=== PATIENT | female | born 1950 | race Caucasian/White ===

== ENCOUNTER 2022-04-20 10:43 | Observation (INO) ==
[2022-04-20 10:50] VITALS: BMI 22.6
[2022-04-20] MEDS ORDERED: NS 500 ML IV 500 ML IV ONE ×2 (10:54→10:56)
--- NOTE | 2022-04-20 10:54 | DR.GENAD ---
HPI Time Seen Time Seen by Provider: 04/20/22 10:53 PCP Primary Care Physician: DR. CASILLAS Complaint/Symptoms Chief Complaint Doctors Comments: 71 yt/o female brought in by family for altered mental status. Going on for the past 4 days. 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 Has been having generalized weakness, decreased PO intake, confusion, decreased speech past 4 days. No report of fever, chills, nausea, vomiting, diarrhea, urinary issues. Has had some sinus congestion, frontal headache. Chief Complaint:: DAUGHTER STATES PT. STARTED ACTING DIFFERENTLY ON TUESDAY OR TUESDAY. SHE STATES HER MOTHER WAS CONFUSED, UNABLE TO RECOGNIZE FAMILY MEMBERS, SLEEPING A LOT. DAUGHTER STATES PT. HAS BEEN APASHIC. LAST STROKE WAS OVER 1 YEAR AGO. IN TRIAGE, PT. IS ALERT. PT. IS ABLE TO STATE HER NAME. Nurses notes reviewed Nurses Notes Review: Yes Source History Provided: Family Member Mode of Arrival Mode of Arrival: Ambulatory Timing Onset of Chief Complaint: 04/16/22 PMH PMH Past Medical History: Yes Past Surgical History: Yes Family History History of Family Medical Conditions: Yes Family Medical History: Diabetes Mellitus, Cancer, [place], Coronary Artery Disease and Hypertension Social History Does patient currently use any type of tobacco product: No Have you used tobacco products in the last 12 months: No Type of Tobacco Use: None Does any household member use tobacco: No Alcohol Use: None Do you use any recreational Drugs:: No Lives With: Spouse Lives Where: Home Infectious screening In the last 2 months have you had wt loss of >10#?: NO Have you had fever, night sweats or hemotysis?: No Have you traveled outside the country in the last 6 months?: No Isolation: Standard ROS Review of Systems Constitutional: Weakness and Loss of Appetite Eyes: No Symptoms Reported ENTM: Nose Congestion Respiratoy: No Symptoms Reported Cardiovascular: No Symptoms Reported Gastrointestinal/Abdominal: No Symptoms Reported Genitourinary: No Symptoms Reported Neurological: Headache and Weakness Musculoskeletal: No Symptoms Reported Integumentary: No Symptoms Reported Hematologic/Lymphatic: No Symptoms Reported Psychiatric: No Symptoms Reported All Other Systems: Reviewed and Negative PE Vital Signs Vitals: Temperature 97.2 F Pulse Rate 66 Respiratory Rate 17 Blood Pressure 186/81 O2 Sat by Pulse Oximetry 94 General General Appearance: In No Apparent Distress and Other (+ a bit somnolent) Head Head Exam: Normal Inspection Eyes Eye exam: PERRL, EOMI and Other (slight dropping of left upper eyelid) ENT ENT Exam: Normal Exam and Mucous Membranes Moist Neck Neck Exam: Normal Inspection and Full ROM Chest Chest Inspection: Normal Inspection Respiratory Respiratory Exam: Normal Lung Sounds Bilat; negative Accessory Muscle Use or Respiratory Distress Cardiovascular Cardiovascular Exam: Regular Rate, Normal Rhythm and Normal Heart Sounds Abdominal Exam Abdominal Exam: Normal Bowel Sounds and Soft; negative Tenderness Extremities Extremities Exam: Normal Inspection and Full ROM; negative Edema Neurologic Neurological Exam: Alert, CN II-XII Intact, Motor Sensory Deficit and Other (follows commands); negative Oriented X3 Psychiatric Psychiatric Exam: Normal Affect Skin Skin Exam: Warm and Dry MDM Differential Diagnosis Differential Diagnosis: UTI, CVA, elecrtrolyte abnormalities, dehydration. COURSE Treatment Treatment: 71 y/o female brought in by family for altered mental status x several days. Pt is confused, able to follow commands. No focal neurological deficits. W/u initiated. 1400 - w/u shows UTI to be present. Pt given IV rocephin. CT of head with chronic changes. Has an area of uptake of the superior shahzad. Cannot r/o small hemorrhage vs calcification. Will order MRI of the brain. Pt accepted for admission for altered mental status, UTI by covering , Dr Guerrero. ROR Labs Reviewed Laboratory Results Reviewed?: Yes Result Diagrams: 04/20/22 11:12 04/20/22 11:12 Laboratory: WBC 8.0 X10^3/uL (3.6-10.0) 04/20/22 11:12 RBC 4.22 X10^6/uL (3.5-5.4) 04/20/22 11:12 Hgb 12.3 g/dL (12.0-16.0) 04/20/22 11:12 Hct 35.6 % (36.0-47.0) L 04/20/22 11:12 MCV 84.4 fL (80.0-100.0) 04/20/22 11:12 MCH 29.1 pg (27.0-34.0) 04/20/22 11:12 MCHC 34.5 g/dL (33.0-35.0) 04/20/22 11:12 RDW 16.6 % (11.6-16.5) H 04/20/22 11:12 Plt Count 282 X10^3/uL (150.0-450.0) 04/20/22 11:12 MPV 6.7 fL (7.4-11.0) L 04/20/22 11:12 Neut % (Auto) 68.7 % (42.0-75.0) 04/20/22 11:12 Lymph % (Auto) 20.4 % (21.0-51.0) L 04/20/22 11:12 [place] % (Auto) 9.2 % (0.0-13.0) 04/20/22 11:12 Eos % (Auto) 1.1 % (0.9-2.9) 04/20/22 11:12 Baso % (Auto) 0.6 % (0.2-1.0) 04/20/22 11:12 Neut # (Auto) 5.5 x10^3/uL (2.2-4.8) H 04/20/22 11:12 Lymph # (Auto) 1.6 X10^3/uL (1.3-2.9) 04/20/22 11:12 [place] # (Auto) 0.7 x10^3/uL (0.3-0.8) 04/20/22 11:12 Eos # (Auto) 0.1 x10^3/uL (0.0-0.2) 04/20/22 11:12 Baso # (Auto) 0.0 X10^3/uL (0.0-0.1) 04/20/22 11:12 Absolute Nucleated RBC 0.1 /100WBC 04/20/22 11:12 Sodium 144 mmol/L (136-145) 04/20/22 11:12 Corrected Sodium TNP 04/20/22 11:12 Potassium 3.1 mmol/L (3.5-5.1) L 04/20/22 11:12 Chloride 108 mmol/L (98-107) H 04/20/22 11:12 Carbon Dioxide 32.3 mmol/L (21-32) H 04/20/22 11:12 BUN 16 mg/dL (7-18) 04/20/22 11:12 Creatinine 1.03 mg/dL (0.55-1.02) H 04/20/22 11:12 Est GFR (MDRD) Af Amer > 60 (>60) 04/20/22 11:12 Est GFR (MDRD) Non-Af 56 (>60) L 04/20/22 11:12 Glucose 98 mg/dL (65-99) 04/20/22 11:12 Calcium 8.5 mg/dL (8.5-10.1) 04/20/22 11:12 Corrected Calcium TNP 04/20/22 11:12 Total Bilirubin 0.30 mg/dL (0.2-1.0) 04/20/22 11:12 AST 14 Units/L (15-37) L 04/20/22 11:12 ALT 13 Units/L (12-78) 04/20/22 11:12 Alkaline Phosphatase 126 Units/L (46-116) H 04/20/22 11:12 Creatine Kinase 113 Units/L (26-192) 04/20/22 11:12 Troponin I High Sens 5.4 ng/L (4.0-60.0) 04/20/22 11:12 Total Protein 6.6 g/dL (6.4-8.2) 04/20/22 11:12 Albumin 3.4 g/dL (3.4-5.0) 04/20/22 11:12 Globulin 3.2 g/dL (2.5-4.5) 04/20/22 11:12 Albumin/Globulin Ratio 1.1 Ratio (1.1-2.1) 04/20/22 11:12 Lipase 84 Units/L (73-393) 04/20/22 11:12 Specimen Type Catherized urine 04/20/22 12:45 Urine Color Yellow (YELLOW) 04/20/22 12:45 Urine Appearance Hazy (CLEAR) 04/20/22 12:45 Urine pH 5.0 (5.0 - 8.0) 04/20/22 12:45 Ur Specific [place] 1.025 (1.000-1.030) 04/20/22 12:45 Urine Protein 2+ (NEGATIVE) 04/20/22 12:45 Urine Glucose (UA) Negative (NEGATIVE) 04/20/22 12:45 Urine Ketones Negative (NEGATIVE) 04/20/22 12:45 Urine Blood 2+ (NEGATIVE) 04/20/22 12:45 Urine Nitrite Positive (NEGATIVE) 04/20/22 12:45 Urine Bilirubin Negative (NEGATIVE) 04/20/22 12:45 Urine Urobilinogen Normal (NORMAL) 04/20/22 12:45 Ur Leukocyte Esterase 2+ (NEGATIVE) 04/20/22 12:45 Urine RBC 5-10 /HPF (0-3) A 04/20/22 12:45 Urine WBC 30-50 /HPF (0-5) A 04/20/22 12:45 Ur Squamous Epith Cells Few /HPF (NEGATIVE) 04/20/22 12:45 Urine Bacteria 1+ /HPF (NEGATIVE) 04/20/22 12:45 Ur Culture Indicated? Yes/culture set up 04/20/22 12:45 SARS CoV-2 RNA Rapid QUITA Negative (NEGATIVE) 04/20/22 11:12 Blood work acceptable, U/a with 30-50 WBCs/hpf, c/w UTI. XRAY X-ray Results: CT head with chronic changes, possible small blood of shahzad. Will f/u with MRI. EKG Rate: 74 [place]: LAD (-23) Rhythm: NSR Block: None Hypertrophy: None ST: Nonsp Opioid Opioid Risk Tool Total: 0 Total Score Risk Category: Low Risk Copyright: Ralph CARLISLE predicting aberrant behaviors Discharge Plan Diagnosis Discharge Problem: Altered mental status, Urinary tract infection Discharge Plan Patient Disposition: HOME, SELF-CARE Condition: Stable
[2022-04-20 11:25] LABS: BASOPHILS % (AUTO) 0.6 % (0.2-1.0); EOSINOPHILS # (AUTO) 0.1 x10^3/uL (0.0-0.2); EOSINOPHILS % (AUTO) 1.1 % (0.9-2.9); HEMATOCRIT 35.6 % (36.0-47.0); HEMOGLOBIN 12.3 g/dL (12.0-16.0); LYMPHOCYTES # (AUTO) 1.6 X10^3/uL (1.3-2.9); LYMPHOCYTES % (AUTO) 20.4 % (21.0-51.0); MEAN CORPUSCULAR HEMOGLOBIN 29.1 pg (27.0-34.0); MEAN CORPUSCULAR HGB CONC 34.5 g/dL (33.0-35.0); MEAN CORPUSCULAR VOLUME 84.4 fL (80.0-100.0); MEAN PLATELET VOLUME 6.7 fL (7.4-11.0); MONOCYTES # (AUTO) 0.7 x10^3/uL (0.3-0.8); MONOCYTES % (AUTO) 9.2 % (0.0-13.0); NEUTROPHILS # (AUTO) 5.5 x10^3/uL (2.2-4.8); NEUTROPHILS % (AUTO) 68.7 % (42.0-75.0); RED BLOOD COUNT 4.22 X10^6/uL (3.5-5.4); RED CELL DISTRIBUTION WIDTH 16.6 % (11.6-16.5)
[2022-04-20 11:35] LABS: ALANINE AMINOTRANSFERASE 13 Units/L (12-78); ALBUMIN 3.4 g/dL (3.4-5.0); ALKALINE PHOSPHATASE 126 Units/L (46-116); ASPARTATE AMINO TRANSFERASE 14 Units/L (15-37); BLOOD UREA NITROGEN 16 mg/dL (7-18); CALCIUM 8.5 mg/dL (8.5-10.1); CARBON DIOXIDE 32.3 mmol/L (21-32); CHLORIDE 108 mmol/L (98-107); CREATINE KINASE 113 Units/L (26-192); CREATININE 1.03 mg/dL (0.55-1.02); LIPASE 84 Units/L (73-393); SODIUM 144 mmol/L (136-145); TOTAL PROTEIN 6.6 g/dL (6.4-8.2); eGFR NON BLACK RACES 56 (>60)
--- NOTE | 2022-04-20 12:58 | CT ---
HISTORYUnresponsive, altered mental statusSTUDYCT head without contrastTechnique: Axial noncontrast images with coronal and sagittal reformats. Dose reduction procedures were used with mA/kv adjusted for body size.COMPARISONNoneFINDINGSThe patient is status post right frontal craniotomy and bone flap. The ventricles, cortical sulci, and other CSF spaces are enlarged consistent generalized atrophy likely age related. There is decreased attenuation in the periventricular white matter suggestive of small vessel vascular disease. Old infarcts are present in the anterior left thalamus and left basal ganglia, right basal ganglia, and left centrum semiovale. There is a 5 mm focus of increased attenuation in the superior aspect of the mid pontine region which could represent calcification or hemorrhage. MRI is recommended in order to make this distinction. This is best visualized on CT series 4, image [address] series 5, image 17. There are no focal areas of abnormal attenuation to suggest recent CVA, contusion, or extra-axial fluid collection. The visualized sinuses are clear. The calvarium is intact other than the prior right frontal surgery.IMPRESSION5 mm focus of increased attenuation in the superior aspect of the mid pontine region representing either calcification or a very small acute hemorrhage. MRI is recommended in order to make this distinction.Generalized atrophy likely age relatedSmall-vessel diseaseMultiple old infarcts as described aboveElectronically signed by: SAVANNA FINLEY (Apr 20, 2022 12:56:57)
[2022-04-20 13:18] LABS: BILIRUBIN,URINE NEGATIVE (NEGATIVE); BLOOD/HEMOGLOBIN,URINE 2+ (NEGATIVE); GLUCOSE, URINE NEGATIVE (NEGATIVE); KETONES,URINE NEGATIVE (NEGATIVE); LEUKOCYTE ESTERASE ,URINE 2+ (NEGATIVE); NITRITES,URINE POSITIVE (NEGATIVE); PROTEIN,URINE 2+ (NEGATIVE); UROBILINOGEN,URINE NORMAL (NORMAL)
[2022-04-20 13:28] LABS: APPEARANCE,URINE HAZY (CLEAR); BACTERIA,URINE 1+ /HPF (NEGATIVE); COLOR,URINE YELLOW (YELLOW); SQUAMOUS EPITHELIAL CELL,UR FEW /HPF (NEGATIVE)
[2022-04-20] MEDS ORDERED: NS 100 ML IV 100 ML ONE (13:40)
[2022-04-20] MEDS ORDERED: ROCEPHIN VIAL 1 GRAM ONE (13:40)
[2022-04-20] MEDS: ROCEPHIN VIAL 1 GRAM 1 G in NS 100 ML IV 100 ML IV SCH (13:44)
--- NOTE | 2022-04-20 14:31 | RAD ---
HISTORYHAD ANOTHER STROKE BARELY RESPONSIVE.br STATUSSTUDYCHEST, 1 VIEWCOMPARISONNoneFINDINGSThe cardiomediastinal silhouette is normal in size. No acute airspace disease. No pneumothorax or effusion. The bony thorax appears intact.IMPRESSIONNo acute cardiopulmonary disease.Electronically signed by: SAVANNA FINLEY (Apr 20, 2022 14:28:57)
[2022-04-20] MEDS ORDERED: ZOFRAN TAB 4 MG PO PRN (14:43)
--- NOTE | 2022-04-20 15:21 | MRI ---
HISTORYABNORMAL CT, AMS.STUDYBRAIN W/O CONCOMPARISONCT head from same day.TECHNIQUEMultiplanar multi-sequence MRI of the brain was obtained utilizing standard departmental protocol. Sagittal and axial T1 weighted images were obtained. Axial T2 and flair weighted images were performed as well. Axial diffusion weighted and ADC trace mapping was performed.FINDINGSDiffusion imaging: [There is restricted diffusion at the anterior left caudate and posterior limb of the left internal capsule image 11 series 502. ]Susceptibility weighted imaging: [Punctate susceptibility artifact at the medulla and dorsal shahzad image 5 and 8 series 1001. No other abnormal signal in these locations on other pulse sequences. Prior right frontal craniotomy with susceptibility artifact from hardware.]Brain volume: [Appropriate for age.]Ventricles and basal cisterns: [Normal for age.]Extra-axial spaces: [No extra-axial collection.]Cerebral parynchema: [No mass, hematoma, or mass effect.] Chronic left basal ganglia, right internal capsule, pontine, and bilateral thalami lacunar infarcts. Moderate amount of T2 and Flair hyperintensities in the supratentorial subcortical and deep white matter. Mild encephalomalacia adjacent to the craniotomy defect in the right frontal lobe.Pituitary and other sagittal midline structures: [Normal.]Visualized orbits: [Normal.]Paranasal sinuses and mastoid air cells: [Mild mucosal thickening in the ethmoid air cells.]Bones: [Prior right frontal craniotomy.]Other: [None.]IMPRESSION[Restricted diffusion in the anterior left caudate and posterior limb of the left internal capsule consistent with acute or early subacute lacunar infarct.Susceptibility artifact in the medulla and dorsal shahzad is likely due to chronic mineralization or calcification rather than acute blood product.] No other abnormal signal in these locations on other pulse sequences.Other chronic ischemic change as above.Electronically signed by: Milo Rowell (Apr 20, 2022 15:20:07)
--- NOTE | 2022-04-20 15:55 | DR.H&P ---
H&P - History & Physical for Day of: H&P Date: 04/20/22 - Chief Complaint Chief Complaint: AMS - History of Present Illness History of Present Illness: DAUGHTER STATES PT. STARTED ACTING DIFFERENTLY ON TUESDAY OR TUESDAY. SHE STATES HER MOTHER WAS CONFUSED, UNABLE TO RECOGNIZE FAMILY MEMBERS, SLEEPING A LOT. DAUGHTER STATES PT. HAS BEEN APASHIC. LAST STROKE WAS OVER 1 YEAR AGO. IN TRIAGE, PT. IS ALERT. PT. IS ABLE TO STATE HER NAME. - Past Medical History Past Medical History: CVA, Dyslipidemia, GERD, Hypertension - Past Surgical History Surgical History: Hysterectomy - Family History Family Medical History: Diabetes Mellitus, Cancer, [place], Coronary Artery Disease, Hypertension - Social History Does patient currently use any type of tobacco product: No Have you used tobacco products in the last 12 months: No Type of Tobacco Use: None Does any household member use tobacco: No Alcohol Use: None Drug Use: None - Medications Home Medications: codeine Allergy (Verified 04/20/22 10:50) Sulfa (Sulfonamide Antibiotics) [SULFA] Allergy (Verified 04/20/22 10:50) CONTINUE taking the following medications amlodipine 5 mg tablet 5 mg PO DAILY 04/20/22 [History] atorvastatin 40 mg tablet 1 tab PO QPM 04/20/22 [History] clopidogrel 75 mg tablet 1 tab PO QDAY 04/20/22 [History] diltiazem HCl 180 mg capsule,extended release 24 hr 1 cap PO QDAY 04/20/22 [History] ergocalciferol (vitamin D2) 1,250 mcg (50,000 unit) capsule 1 cap PO QMONTH 04/20/22 [History] levetiracetam 250 mg tablet 1 tab PO BID 04/20/22 [History] losartan 50 mg tablet 50 mg PO DAILY 04/20/22 [History] mirabegron 25 mg tablet,extended release 24 hr (Myrbetriq) 1 tab PO QDAY 04/20/22 [History] omeprazole 40 mg capsule,delayed release 1 cap PO QDAY 04/20/22 [History] ondansetron HCl 4 mg tablet 1 tab PO Q6H PRN nausea/vomiting 04/20/22 [History] tolterodine 4 mg capsule,extended release 24 hr 4 mg PO DAILY 04/20/22 [History] - Review of Systems Constitutional: Weakness, Malaise Eyes: No Symptoms Reported ENT: No Symptoms Reported Respiratory: No Symptoms Reported Cardiovascular: No Symptoms Reported Gastrointestinal: Other (POOR PO INTAKE) Genitourinary: Incontinence Musculoskeletal: No Symptoms Reported Skin: No Symptoms Reported Neurological: Weakness, Other (APHAGIA) - Physical Exam Vital Signs: Temperature 97.2 F Pulse Rate 66 Respiratory Rate 17 Blood Pressure 186/81 O2 Sat by Pulse Oximetry 93 Oriented: Person Eyes: Normal Ear: Normal Nose: Normal Throat: Normal Respiratory: RLL Diminished, LLL Diminished Cardiovascular: Normal. negative: Edema Tenderness: Normal Skin: Decreased [place] Musculoskeletal: Motor Deficit Affect: Flat Speech Pattern: Delayed - Assessment/Plan (1) Altered mental status Status: Acute Plan: ADMIT, AM FLP. ECHO AND CAROTID US. BP CONTROL, CARDIAC MONITORING. MRI ON ADMISSION, CONTINUE PLAVIX STATIN ASPIRIN THERAPY. PT/OT/ST CONSULT (2) CVA (cerebral vascular accident) Status: Acute (3) Urinary tract infection Status: Acute - Allergies Allergies/Adverse Reactions: Allergies Allergy/AdvReac Type Severity Reaction Status Date / Time codeine Allergy Verified 04/20/22 10:50 Sulfa (Sulfonamide Allergy Verified 04/20/22 10:50 Antibiotics) [SULFA]
[2022-04-20] MEDS: CARDIZEM CD 180 MG 24-HR PO SCH (16:14)
[2022-04-20] MEDS: PriLOSEC PO SCH (16:14)
[2022-04-20] MEDS: ASPIRIN EC 81 MG PO SCH (16:15)
[2022-04-20] MEDS: PLAVIX PO SCH (16:16)
[2022-04-20] MEDS ORDERED: CATAPRES TAB 0.1 MG PO ONE (16:24)
[2022-04-20] MEDS ORDERED: POTASSIUM CHL 40 MEQ/NS 0.45% 500 ML IV PRN (19:19)
[2022-04-20] MEDS ORDERED: K-RIDER 10 MEQ/NS 100 ML 10 MEQ/100 ML BAG IV PRN (19:19)
[2022-04-20] MEDS ORDERED: POTASSIUM CHLORIDE LIQ 20 MEQ UDC PO PRN (19:19)
[2022-04-20] MEDS ORDERED: POTASSIUM CHL 60 MEQ/NS 0.45% 500 ML IV PRN (19:19)
[2022-04-20] MEDS: KEPPRA TAB 500 MG PO SCH (20:45)
[2022-04-20] MEDS: LIPITOR TAB 40 MG PO SCH (20:46)
[2022-04-20] MEDS: KLOR-CON PO PRN (20:47)
[2022-04-21 06:11] LABS: BASOPHILS # (AUTO) 0.1 X10^3/uL (0.0-0.1); BASOPHILS % (AUTO) 0.9 % (0.2-1.0); EOSINOPHILS # (AUTO) 0.1 x10^3/uL (0.0-0.2); EOSINOPHILS % (AUTO) 1.8 % (0.9-2.9); HEMATOCRIT 34.3 % (36.0-47.0); HEMOGLOBIN 11.9 g/dL (12.0-16.0); LYMPHOCYTES # (AUTO) 1.9 X10^3/uL (1.3-2.9); LYMPHOCYTES % (AUTO) 29.9 % (21.0-51.0); MEAN CORPUSCULAR HEMOGLOBIN 28.9 pg (27.0-34.0); MEAN CORPUSCULAR HGB CONC 34.7 g/dL (33.0-35.0); MEAN CORPUSCULAR VOLUME 83.2 fL (80.0-100.0); MONOCYTES # (AUTO) 0.6 x10^3/uL (0.3-0.8); MONOCYTES % (AUTO) 8.8 % (0.0-13.0); NEUTROPHILS # (AUTO) 3.8 x10^3/uL (2.2-4.8); NEUTROPHILS % (AUTO) 58.6 % (42.0-75.0); RED BLOOD COUNT 4.13 X10^6/uL (3.5-5.4); RED CELL DISTRIBUTION WIDTH 16.6 % (11.6-16.5); WHITE BLOOD COUNT 6.5 X10^3/uL (3.6-10.0)
[2022-04-21 06:18] LABS: ALANINE AMINOTRANSFERASE 11 Units/L (12-78); ALBUMIN 2.9 g/dL (3.4-5.0); ALKALINE PHOSPHATASE 114 Units/L (46-116); ASPARTATE AMINO TRANSFERASE 20 Units/L (15-37); BLOOD UREA NITROGEN 13 mg/dL (7-18); CALCIUM 8.5 mg/dL (8.5-10.1); CARBON DIOXIDE 27.9 mmol/L (21-32); CHLORIDE 107 mmol/L (98-107); CHOL/HDL RATIO 3.5 (0.0-5.0); CHOLESTEROL 180 mg/dL (0-200); COR CA(FOR HYPOALB) 9.4 mg/dL (8.5-10.1); CREATININE 0.72 mg/dL (0.55-1.02); HDL CHOLESTEROL 51 mg/dL (40-60); SODIUM 140 mmol/L (136-145); TOTAL PROTEIN 6.1 g/dL (6.4-8.2); TRIGLYCERIDES 93 mg/dL (0-150); eGFR NON BLACK RACES > 60 (>60)
[2022-04-21] MEDS ORDERED: DETROL LA 4 MG CAP EXT REL PO SCH (09:00)
[2022-04-21] MEDS: PriLOSEC PO SCH (09:52)
[2022-04-21] MEDS: ASPIRIN EC 81 MG PO SCH (09:52)
[2022-04-21] MEDS: PLAVIX PO SCH (09:53)
[2022-04-21] MEDS: KEPPRA TAB 500 MG PO SCH ×2 (09:53→20:31)
[2022-04-21] MEDS: ROCEPHIN VIAL 1 GRAM 1 G in NS 100 ML IV 100 ML IV SCH (09:54)
[2022-04-21] MEDS: CARDIZEM CD 180 MG 24-HR PO SCH (09:54)
[2022-04-21] MEDS: NORVASC TAB 5 MG PO SCH (09:58)
[2022-04-21] MEDS: COZAAR PO SCH (09:58)
--- NOTE | 2022-04-21 10:05 | VAS ---
HISTORYCVA, AMS.Concern for carotid artery stenosis. Carotid atherosclerosis.EXAM: BILATERAL DOPPLER CAROTID ULTRASOUND EXAMTechnique: Multiple robin scale and color flow Doppler images of the right and left carotid arterial system were obtained. The vertebral arterial system was evaluated as well.Findings: Nonocclusive color flow Doppler is seen throughout the right and left carotid arterial system. No hemodynamically significant carotid arterial stenosis is seen based on velocity criteria. There is [id number] bilateral carotid atherosclerosis and mixed atherosclerotic plaque formation of the bilateral carotid bulbs and ICAs with associated intimal thickening but [without] evidence for high-grade stenosis (>70%) or occlusion of the carotid arteries. The left vertebral artery demonstrate antegrade flow.IMPRESSION:Znio-[id number] bilateral carotid atherosclerosis and mixed atherosclerotic plaque formation of the bilateral carotid bulbs and [in both] ICAs with [id number] associated carotid intimal thickening but without evidence for high-grade stenosis or occlusion of the carotid arteries, based on Doppler velocity criteria.Appropriate, antegrade, left vertebral arterial flow. The right vertebral artery is not evaluated/visualized on this exam.Peak right ICA velocity: 109 centimeter/seconds.Peak right CCA velocity: 94 centimeter/seconds.Peak left ICA velocity: 54 centimeter/seconds.Peak left CCA velocity: 96 centimeter/seconds.Right ICA to CCA ratio: 3.36.Left ICA to CCA ratio: 0.90.Electronically signed by: IRENE ANGEL III (Apr 21, 2022 10:03:47)
[2022-04-21] MEDS ORDERED: NS 100 ML IV 100 ML ONE (10:13)
[2022-04-21] MEDS: LIPITOR TAB 40 MG PO SCH (20:32)
[2022-04-22 06:38] LABS: ALANINE AMINOTRANSFERASE 12 Units/L (12-78); ALBUMIN 3.2 g/dL (3.4-5.0); ALKALINE PHOSPHATASE 128 Units/L (46-116); ASPARTATE AMINO TRANSFERASE 14 Units/L (15-37); BLOOD UREA NITROGEN 12 mg/dL (7-18); CALCIUM 8.4 mg/dL (8.5-10.1); CARBON DIOXIDE 30.2 mmol/L (21-32); CHLORIDE 104 mmol/L (98-107); CREATININE 0.71 mg/dL (0.55-1.02); SODIUM 141 mmol/L (136-145); TOTAL PROTEIN 6.5 g/dL (6.4-8.2); eGFR NON BLACK RACES > 60 (>60)
[2022-04-22 07:16] LABS: BASOPHILS # (AUTO) 0.1 X10^3/uL (0.0-0.1); BASOPHILS % (AUTO) 0.8 % (0.2-1.0); EOSINOPHILS # (AUTO) 0.1 x10^3/uL (0.0-0.2); EOSINOPHILS % (AUTO) 2.2 % (0.9-2.9); HEMATOCRIT 33.8 % (36.0-47.0); HEMOGLOBIN 12.1 g/dL (12.0-16.0); MEAN CORPUSCULAR HEMOGLOBIN 29.1 pg (27.0-34.0); MEAN CORPUSCULAR HGB CONC 35.6 g/dL (33.0-35.0); MEAN CORPUSCULAR VOLUME 81.7 fL (80.0-100.0); MEAN PLATELET VOLUME 6.7 fL (7.4-11.0); MONOCYTES # (AUTO) 0.6 x10^3/uL (0.3-0.8); MONOCYTES % (AUTO) 8.5 % (0.0-13.0); NEUTROPHILS % (AUTO) 59.5 % (42.0-75.0); RED BLOOD COUNT 4.14 X10^6/uL (3.5-5.4); RED CELL DISTRIBUTION WIDTH 16.3 % (11.6-16.5); WHITE BLOOD COUNT 6.7 X10^3/uL (3.6-10.0)
[2022-04-22] MEDS: ASPIRIN EC 81 MG PO SCH (10:00)
[2022-04-22] MEDS: CARDIZEM CD 180 MG 24-HR PO SCH (10:00)
[2022-04-22] MEDS: KEPPRA TAB 500 MG PO SCH (10:00)
[2022-04-22] MEDS: NORVASC TAB 5 MG PO SCH (10:00)
[2022-04-22] MEDS: COZAAR PO SCH (10:00)
[2022-04-22] MEDS: PriLOSEC PO SCH (10:00)
[2022-04-22] MEDS: PLAVIX PO SCH (10:00)
[2022-04-22] MEDS: ROCEPHIN VIAL 1 GRAM 1 G in NS 100 ML IV 100 ML IV SCH (10:38)
[2022-04-22] MEDS: KLOR-CON PO PRN (11:23)
[2022-04-22 12:27] VITALS: BP 148/68
[2022-04-22] MEDS ORDERED: CIPRO TAB 500 MG PO SCH (14:00)
[2022-05-20] MEDS ORDERED: VITAMIN D (1.25MG) PO SCH (09:00)
== END 2022-04-22 14:00 | disposition home health service (06) ==
LOC: MED/SURG 10:43 → ER 10:43 → MED/SURG 15:05
PROVIDERS: ADMIT Internal Medicine; ATTEND Internal Medicine
DX: I10 Essential (primary) hypertension; K21.9 Gastro-esophageal reflux disease without esophagitis; I69.354 Hemiplegia and hemiparesis following cerebral infarction affecting left non-dominant side; E78.2 Mixed hyperlipidemia; B95.7 Other staphylococcus as the cause of diseases classified elsewhere; R94.31 Abnormal electrocardiogram [ECG] [EKG]; N39.0 Urinary tract infection, site not specified; R26.89 Other abnormalities of gait and mobility; Z20.822 Contact with and (suspected) exposure to COVID-19; R13.11 Dysphagia, oral phase; R51.9 Headache, unspecified; R41.82 Altered mental status, unspecified

== ENCOUNTER 2022-05-06 12:58 | Inpatient (IN) ==
[2022-05-06 13:03] VITALS: BMI 23.3
--- NOTE | 2022-05-06 13:19 | DR.GENAD ---
HPI Time Seen Time Seen by Provider: 05/06/22 13:18 PCP Primary Care Physician: HAILEY CASILLAS Complaint/Symptoms Chief Complaint Doctors Comments: 71 y/o female brought in for evaluation. Having genearalized weakness over the past 2 days. Not eating, not drinking. Getting weaker. Had a UTI, mild CVA few weeks ago. Was doing better up to 2 days ago. No focal weakness, has not had much to eat, drink. No change in urine. Coughed once yesterday. [place] warm, + temp here. Pt unable to voice complaints, has difficulty in following commands. Chief Complaint:: FAMILY STATES THEY THINK PT. HAS HAD ANOTHER STROKE. PT. BEGAN BEING VERY TIRED AND SLEEPING A LOT ON TUESDAY. PT. HAS NOT BEEN EATING/DRINKING MUCH AND IS VERY WEAK GENERALLY. DAUGHTER STATES PT. HAS NOW HAD A BOWEL MOVEMENT X 1 WEEK. SHE STATES SHE HAS GIVEN HER MEDICATION OTC WITH NO RESULTS. COVID-19 Coronavirus risk:travel/contact w/high risk person: No Has patient experienced Coronavirus symptoms: No Source History Provided: Family Member Mode of Arrival Mode of Arrival: Wheelchair Timing Onset of Chief Complaint: 05/04/22 PMH PMH Past Medical History: Yes Past Medical History: CVA, Dyslipidemia, GERD and Hypertension Past Surgical History: Yes Surgical History: Hysterectomy Family History History of Family Medical Conditions: Yes Family Medical History: Diabetes Mellitus, Cancer, [place], Coronary Artery Disease and Hypertension Social History Does patient currently use any type of tobacco product: No Have you used tobacco products in the last 12 months: No Type of Tobacco Use: None Does any household member use tobacco: No Alcohol Use: None Do you use any recreational Drugs:: No Lives With: Spouse Lives Where: Home Travel Risk Coronavirus risk:travel/contact w/high risk person: No Has patient experienced Coronavirus symptoms: No Infectious screening In the last 2 months have you had wt loss of >10#?: NO Have you had fever, night sweats or hemotysis?: No Have you traveled outside the country in the last 6 months?: No Isolation: Standard ROS Review of Systems Unable to Obtain Due To: Altered mental status PE Vital Signs Vitals: Temperature 98.4 F Pulse Rate 92 Respiratory Rate 20 Blood Pressure [Right Arm] 148/68 Blood Pressure 141/77 O2 Sat by Pulse Oximetry 96 General General Appearance: Obtunded Head Head Exam: Normal Inspection, Atraumatic and Normocephalic Eyes Eye exam: PERRL ENT ENT Exam: Mucous Membranes Dry Neck Neck Exam: Normal Inspection Respiratory Respiratory Exam: Normal Lung Sounds Bilat; negative Accessory Muscle Use or Respiratory Distress Cardiovascular Cardiovascular Exam: Regular Rate, Normal Rhythm and Normal Heart Sounds Abdominal Exam Abdominal Exam: Normal Inspection, Normal Bowel Sounds and Soft; negative Tenderness, Guarding or Rebound Extremities Extremities Exam: negative Edema Neurologic Neurological Exam: Other (diffuse weakness, opens eyes to commands, non verbal) MDM Differential Diagnosis Differential Diagnosis: dehydration, electrolytre abn, UTI, CVA, pneumonia COURSE Treatment Treatment: Pt with worsening weakness over the past 2 days. + fever here. W/u initiated. Given IV fluids. 1445 - Brain CT wihtout acute abnormalities. Labs show sodium elevated at 156, chloride 116. Total CK elevated at 2,021. U/A cloudy, concentrated. Moderate hyaline casts, moderate mucous. Will give a dose of Rocephin to cover the urine. Will admit for hydration. Disucssed with Dr Hallman, covering for hospitalist, accepts the admission. ROR Labs Reviewed Result Diagrams: 05/06/22 13:12 05/06/22 13:12 Laboratory: WBC 12.2 X10^3/uL (3.6-10.0) H 05/06/22 13:12 RBC 5.06 X10^6/uL (3.5-5.4) 05/06/22 13:12 Hgb 14.3 g/dL (12.0-16.0) 05/06/22 13:12 Hct 43.5 % (36.0-47.0) 05/06/22 13:12 MCV 85.9 fL (80.0-100.0) 05/06/22 13:12 MCH 28.3 pg (27.0-34.0) 05/06/22 13:12 MCHC 33.0 g/dL (33.0-35.0) 05/06/22 13:12 RDW 15.9 % (11.6-16.5) 05/06/22 13:12 Plt Count 252 X10^3/uL (150.0-450.0) 05/06/22 13:12 MPV 8.1 fL (7.4-11.0) 05/06/22 13:12 Neut % (Auto) 73.7 % (42.0-75.0) 05/06/22 13:12 Lymph % (Auto) 17.5 % (21.0-51.0) L 05/06/22 13:12 [place] % (Auto) 7.9 % (0.0-13.0) 05/06/22 13:12 Eos % (Auto) 0.3 % (0.9-2.9) L 05/06/22 13:12 Baso % (Auto) 0.6 % (0.2-1.0) 05/06/22 13:12 Neut # (Auto) 9.0 x10^3/uL (2.2-4.8) H 05/06/22 13:12 Lymph # (Auto) 2.1 X10^3/uL (1.3-2.9) 05/06/22 13:12 [place] # (Auto) 1.0 x10^3/uL (0.3-0.8) H 05/06/22 13:12 Eos # (Auto) 0.0 x10^3/uL (0.0-0.2) 05/06/22 13:12 Baso # (Auto) 0.1 X10^3/uL (0.0-0.1) 05/06/22 13:12 Absolute Nucleated RBC 0.0 /100WBC 05/06/22 13:12 Sodium 156 mmol/L (136-145) H* 05/06/22 13:12 Corrected Sodium 157 mmol/L (136-145) H 05/06/22 13:12 Potassium 3.4 mmol/L (3.5-5.1) L 05/06/22 13:12 Chloride 116 mmol/L (98-107) H* 05/06/22 13:12 Carbon Dioxide 30.6 mmol/L (21-32) 05/06/22 13:12 BUN 25 mg/dL (7-18) H 05/06/22 13:12 Creatinine 1.32 mg/dL (0.55-1.02) H 05/06/22 13:12 Est GFR (MDRD) Af Amer 51 (>60) L 05/06/22 13:12 Est GFR (MDRD) Non-Af 42 (>60) L 05/06/22 13:12 Glucose 126 mg/dL (65-99) H 05/06/22 13:12 Calcium 8.1 mg/dL (8.5-10.1) L 05/06/22 13:12 Corrected Calcium TNP 05/06/22 13:12 Total Bilirubin 0.80 mg/dL (0.2-1.0) 05/06/22 13:12 AST 56 Units/L (15-37) H 05/06/22 13:12 ALT 23 Units/L (12-78) 05/06/22 13:12 Alkaline Phosphatase 116 Units/L (46-116) 05/06/22 13:12 Creatine Kinase 2021 Units/L (26-192) H 05/06/22 13:12 Troponin I High Sens 18.2 ng/L (4.0-60.0) 05/06/22 13:12 Total Protein 7.5 g/dL (6.4-8.2) 05/06/22 13:12 Albumin 3.6 g/dL (3.4-5.0) 05/06/22 13:12 Globulin 3.9 g/dL (2.5-4.5) 05/06/22 13:12 Albumin/Globulin Ratio 0.9 Ratio (1.1-2.1) L 05/06/22 13:12 Lipase 82 Units/L (73-393) 05/06/22 13:12 Specimen Type Catherized urine 05/06/22 13:30 Urine Color Yellow (YELLOW) 05/06/22 13:30 Urine Appearance Cloudy (CLEAR) 05/06/22 13:30 Urine pH 5.0 (5.0 - 8.0) 05/06/22 13:30 Ur Specific [place] 1.030 (1.000-1.030) 05/06/22 13:30 Urine Protein 2+ (NEGATIVE) 05/06/22 13:30 Urine Glucose (UA) Negative (NEGATIVE) 05/06/22 13:30 Urine Ketones Negative (NEGATIVE) 05/06/22 13:30 Urine Blood 3+ (NEGATIVE) 05/06/22 13:30 Urine Nitrite Negative (NEGATIVE) 05/06/22 13:30 Urine Bilirubin Negative (NEGATIVE) 05/06/22 13:30 Urine Urobilinogen Normal (NORMAL) 05/06/22 13:30 Ur Leukocyte Esterase 2+ (NEGATIVE) 05/06/22 13:30 Urine RBC 5-10 /HPF (0-3) A 05/06/22 13:30 Urine WBC 5-10 /HPF (0-5) A 05/06/22 13:30 Ur Squamous Epith Cells Few /HPF (NEGATIVE) 05/06/22 13:30 Urine Bacteria Trace /HPF (NEGATIVE) 05/06/22 13:30 Granular Casts Moderate /LPF (NEGATIVE) 05/06/22 13:30 Urine Mucus Moderate /HPF (NEGATIVE) 05/06/22 13:30 Urine Yeast Many /HPF (NEGATIVE) 05/06/22 13:30 Ur Culture Indicated? No/not indicated 05/06/22 13:30 SARS-CoV-2 (PCR) Negative (NEGATIVE) 05/06/22 13:35 Influenza Type A (PCR) Negative (NEGATIVE) 05/06/22 13:35 Influenza Type B (PCR) Negative (NEGATIVE) 05/06/22 13:35 RSV (PCR) Negative (NEGATIVE) 05/06/22 13:35 EKG Rate: 104 [place]: LAD Rhythm: ST Block: None ST: Nonsp Opioid Opioid Risk Tool Age (Stephen box if 16-45): No History of Preadolescent Sexual Abuse: No Total: 0 Total Score Risk Category: Low Risk Copyright: Ralph CARLISLE predicting aberrant behaviors Discharge Plan Diagnosis Discharge Problem: Acute dehydration, Rhabdomyolysis Discharge Plan Patient Disposition: 09 ADMITTED INPATIENT Condition: Stable Orders to Discharge Patient Discharge Orders: Transfer (Routine); Ordered 05/06/22 Ordered By: Steven Crespo
[2022-05-06] MEDS ORDERED: NS 500 ML IV 500 ML IV ONE ×2 (13:20→13:35)
[2022-05-06 13:36] LABS: BASOPHILS # (AUTO) 0.1 X10^3/uL (0.0-0.1); BASOPHILS % (AUTO) 0.6 % (0.2-1.0); EOSINOPHILS % (AUTO) 0.3 % (0.9-2.9); HEMATOCRIT 43.5 % (36.0-47.0); HEMOGLOBIN 14.3 g/dL (12.0-16.0); LYMPHOCYTES # (AUTO) 2.1 X10^3/uL (1.3-2.9); LYMPHOCYTES % (AUTO) 17.5 % (21.0-51.0); MEAN CORPUSCULAR HEMOGLOBIN 28.3 pg (27.0-34.0); MEAN CORPUSCULAR VOLUME 85.9 fL (80.0-100.0); MEAN PLATELET VOLUME 8.1 fL (7.4-11.0); MONOCYTES % (AUTO) 7.9 % (0.0-13.0); NEUTROPHILS % (AUTO) 73.7 % (42.0-75.0); RED BLOOD COUNT 5.06 X10^6/uL (3.5-5.4); RED CELL DISTRIBUTION WIDTH 15.9 % (11.6-16.5); WHITE BLOOD COUNT 12.2 X10^3/uL (3.6-10.0)
[2022-05-06 13:59] LABS: ALANINE AMINOTRANSFERASE 23 Units/L (12-78); ALBUMIN 3.6 g/dL (3.4-5.0); ALKALINE PHOSPHATASE 116 Units/L (46-116); ASPARTATE AMINO TRANSFERASE 56 Units/L (15-37); BLOOD UREA NITROGEN 25 mg/dL (7-18); CALCIUM 8.1 mg/dL (8.5-10.1); CARBON DIOXIDE 30.6 mmol/L (21-32); COR NA(FOR HYPERGLY) 157 mmol/L (136-145); CREATININE 1.32 mg/dL (0.55-1.02); LIPASE 82 Units/L (73-393); TOTAL PROTEIN 7.5 g/dL (6.4-8.2); eGFR NON BLACK RACES 42 (>60)
[2022-05-06 14:01] LABS: CHLORIDE 116 mmol/L (98-107); CREATINE KINASE 2021 Units/L (26-192); SODIUM 156 mmol/L (136-145)
[2022-05-06 14:08] LABS: BILIRUBIN,URINE NEGATIVE (NEGATIVE); BLOOD/HEMOGLOBIN,URINE 3+ (NEGATIVE); GLUCOSE, URINE NEGATIVE (NEGATIVE); KETONES,URINE NEGATIVE (NEGATIVE); LEUKOCYTE ESTERASE ,URINE 2+ (NEGATIVE); NITRITES,URINE NEGATIVE (NEGATIVE); PROTEIN,URINE 2+ (NEGATIVE); UROBILINOGEN,URINE NORMAL (NORMAL)
--- NOTE | 2022-05-06 14:10 | RAD ---
HISTORYFatigueSTUDYChest AP [id number]/02/2022FINDINGSHear t size is normal. Minal are normal. Lungs are mildly hypoinflated but clear. No pleural effusions are identified. Bony thorax is unremarkable.IMPRESSIONLungs mildly hypoinflated but clearElectronically signed by: SAVANNA FINLEY (May 06, 2022 14:09:17)
--- NOTE | 2022-05-06 14:25 | CT ---
BRAIN W/O CONCLINICAL INDICATION: STROKETECHNIQUE: Images were obtained through the head per standard CT protocol. Multiplanar reformatted images were generated from the CT dataset. Dose reduction techniques including Automated Exposure Control (AEC) and adjustment of mA and kV were utlized.COMPARISON:April 20, 2022FINDINGS:Diffuse patchy and confluent periventricular and subcortical hypoattenuation with associated volume loss . There is no evidence of acute infarction, intracranial hemorrhage, mass or mass effect, or abnormal extra-axial collection . The density of the larger dural venous sinuses is normal. Age-related, ex-vacuo dilatation of the ventricles and sulci . The skull base and calvarium are normal . The included paranasal sinuses and mastoid air cells are predominantly clear .IMPRESSION:1. No acute intracranial abnormality. Chronic microangiopathic changes and ex vacuo dilatation of the ventricles and sulci.[]Electronically signed by: NIK HUIZAR (May 06, 2022 14:23:56)
[2022-05-06 14:26] LABS: APPEARANCE,URINE CLOUDY (CLEAR); COLOR,URINE YELLOW (YELLOW)
[2022-05-06 14:27] LABS: BACTERIA,URINE TRACE /HPF (NEGATIVE); GRANULAR CASTS,URINE MODERATE /LPF (NEGATIVE); SQUAMOUS EPITHELIAL CELL,UR FEW /HPF (NEGATIVE)
[2022-05-06 14:28] LABS: YEAST,URINE MANY /HPF (NEGATIVE)
[2022-05-06] MEDS ORDERED: ROCEPHIN VIAL 1 GRAM 1 G in NS 100 ML IV 100 ML IV ONE (15:25)
[2022-05-06] MEDS ORDERED: NS 50 ML IV 50 ML IV ONE (15:46)
[2022-05-06] MEDS ORDERED: ROCEPHIN VIAL 1 GRAM ONE (15:46)
[2022-05-06] MEDS: D5 1/2 NS 1,000 ML 1,000 ML IV SCH (16:24)
--- NOTE | 2022-05-06 20:57 | DR.H&P ---
H&P History & Physical for Day of: H&P Date: 05/06/22 Chief Complaint Chief Complaint: Family thinks patient has had a stroke Allergies Allergies Allergy/AdvReac Type Severity Reaction Status Date / Time codeine Allergy Verified 05/06/22 13:03 Sulfa (Sulfonamide Allergy Verified 05/06/22 13:03 Antibiotics) [SULFA] History of Present Illness History of Present Illness: This is a pleasant 71-year-old white female who was brought to the emergency department here [facility] today. Family reports they think that she has had a recent stroke as she is become non- conversant and not doing well over the last 2 days. They do report that she had a recent stroke few weeks ago they thought and I looked back in the notes and see that she was admitted to the hospital here on April 20, 2022. Work-up in the emergency department revealed that she was dehydrated and in rhabdomyolysis. She also has hypernatremia which would account for her confusion and not acting herself. She also has mild hypokalemia and a slightly elevated white blood cell count at 12,200. CT of the brain did not show any acute ischemic changes. And chest x-ray showed hypo-inflated lungs with no infiltrates seen. We will go ahead and admit the patient to the ICU floor and start her on IV fluid at a slow rate. We will slowly correct her hypernatremia and replace her potassium as well. I suspect that once her sodium starts to normalize her mental status changes should improve vastly. I will go ahead and recheck a CBC, CMP and CK in the morning. I am unable to take a review of systems on the patient at this time as she is non-conversant. Past Medical History Past Medical History: CVA, Dyslipidemia, GERD and Hypertension Past Surgical History Surgical History: Hysterectomy Family History Family Medical History: Diabetes Mellitus, Cancer, [place], Coronary Artery Disease and Hypertension Social History Does patient currently use any type of tobacco product: No Have you used tobacco products in the last 12 months: No Type of Tobacco Use: None Does any household member use tobacco: No Alcohol Use: None Drug Use: None Medications Home Medications: codeine Allergy (Verified 05/06/22 13:03) Sulfa (Sulfonamide Antibiotics) [SULFA] Allergy (Verified 05/06/22 13:03) Labs Result Diagrams: 05/06/22 13:12 05/06/22 13:12 Labs: Laboratory WBC 12.2 X10^3/uL (3.6-10.0) H 05/06/22 13:12 RBC 5.06 X10^6/uL (3.5-5.4) 05/06/22 13:12 Hgb 14.3 g/dL (12.0-16.0) 05/06/22 13:12 Hct 43.5 % (36.0-47.0) 05/06/22 13:12 MCV 85.9 fL (80.0-100.0) 05/06/22 13:12 MCH 28.3 pg (27.0-34.0) 05/06/22 13:12 MCHC 33.0 g/dL (33.0-35.0) 05/06/22 13:12 RDW 15.9 % (11.6-16.5) 05/06/22 13:12 Plt Count 252 X10^3/uL (150.0-450.0) 05/06/22 13:12 MPV 8.1 fL (7.4-11.0) 05/06/22 13:12 Neut % (Auto) 73.7 % (42.0-75.0) 05/06/22 13:12 Lymph % (Auto) 17.5 % (21.0-51.0) L 05/06/22 13:12 [place] % (Auto) 7.9 % (0.0-13.0) 05/06/22 13:12 Eos % (Auto) 0.3 % (0.9-2.9) L 05/06/22 13:12 Baso % (Auto) 0.6 % (0.2-1.0) 05/06/22 13:12 Neut # (Auto) 9.0 x10^3/uL (2.2-4.8) H 05/06/22 13:12 Lymph # (Auto) 2.1 X10^3/uL (1.3-2.9) 05/06/22 13:12 [place] # (Auto) 1.0 x10^3/uL (0.3-0.8) H 05/06/22 13:12 Eos # (Auto) 0.0 x10^3/uL (0.0-0.2) 05/06/22 13:12 Baso # (Auto) 0.1 X10^3/uL (0.0-0.1) 05/06/22 13:12 Absolute Nucleated RBC 0.0 /100WBC 05/06/22 13:12 Sodium 156 mmol/L (136-145) H* 05/06/22 13:12 Corrected Sodium 157 mmol/L (136-145) H 05/06/22 13:12 Potassium 3.4 mmol/L (3.5-5.1) L 05/06/22 13:12 Chloride 116 mmol/L (98-107) H* 05/06/22 13:12 Carbon Dioxide 30.6 mmol/L (21-32) 05/06/22 13:12 BUN 25 mg/dL (7-18) H 05/06/22 13:12 Creatinine 1.32 mg/dL (0.55-1.02) H 05/06/22 13:12 Est GFR (MDRD) Af Amer 51 (>60) L 05/06/22 13:12 Est GFR (MDRD) Non-Af 42 (>60) L 05/06/22 13:12 Glucose 126 mg/dL (65-99) H 05/06/22 13:12 POC Glucose (mg/dL) 130 mg/dL (65-99) H 05/06/22 20:22 Calcium 8.1 mg/dL (8.5-10.1) L 05/06/22 13:12 Corrected Calcium TNP 05/06/22 13:12 Total Bilirubin 0.80 mg/dL (0.2-1.0) 05/06/22 13:12 AST 56 Units/L (15-37) H 05/06/22 13:12 ALT 23 Units/L (12-78) 05/06/22 13:12 Alkaline Phosphatase 116 Units/L (46-116) 05/06/22 13:12 Creatine Kinase 2021 Units/L (26-192) H 05/06/22 13:12 Troponin I High Sens 18.2 ng/L (4.0-60.0) 05/06/22 13:12 Total Protein 7.5 g/dL (6.4-8.2) 05/06/22 13:12 Albumin 3.6 g/dL (3.4-5.0) 05/06/22 13:12 Globulin 3.9 g/dL (2.5-4.5) 05/06/22 13:12 Albumin/Globulin Ratio 0.9 Ratio (1.1-2.1) L 05/06/22 13:12 Lipase 82 Units/L (73-393) 05/06/22 13:12 Specimen Type Catherized urine 05/06/22 13:30 Urine Color Yellow (YELLOW) 05/06/22 13:30 Urine Appearance Cloudy (CLEAR) 05/06/22 13:30 Urine pH 5.0 (5.0 - 8.0) 05/06/22 13:30 Ur Specific [place] 1.030 (1.000-1.030) 05/06/22 13:30 Urine Protein 2+ (NEGATIVE) 05/06/22 13:30 Urine Glucose (UA) Negative (NEGATIVE) 05/06/22 13:30 Urine Ketones Negative (NEGATIVE) 05/06/22 13:30 Urine Blood 3+ (NEGATIVE) 05/06/22 13:30 Urine Nitrite Negative (NEGATIVE) 05/06/22 13:30 Urine Bilirubin Negative (NEGATIVE) 05/06/22 13:30 Urine Urobilinogen Normal (NORMAL) 05/06/22 13:30 Ur Leukocyte Esterase 2+ (NEGATIVE) 05/06/22 13:30 Urine RBC 5-10 /HPF (0-3) A 05/06/22 13:30 Urine WBC 5-10 /HPF (0-5) A 05/06/22 13:30 Ur Squamous Epith Cells Few /HPF (NEGATIVE) 05/06/22 13:30 Urine Bacteria Trace /HPF (NEGATIVE) 05/06/22 13:30 Granular Casts Moderate /LPF (NEGATIVE) 05/06/22 13:30 Urine Mucus Moderate /HPF (NEGATIVE) 05/06/22 13:30 Urine Yeast Many /HPF (NEGATIVE) 05/06/22 13:30 Ur Culture Indicated? No/not indicated 05/06/22 13:30 SARS-CoV-2 (PCR) Negative (NEGATIVE) 05/06/22 13:35 Influenza Type A (PCR) Negative (NEGATIVE) 05/06/22 13:35 Influenza Type B (PCR) Negative (NEGATIVE) 05/06/22 13:35 RSV (PCR) Negative (NEGATIVE) 05/06/22 13:35 Review of Systems Constitutional: See HPI Eyes: See HPI ENT: See HPI Respiratory: See HPI Cardiovascular: See HPI Gastrointestinal: See HPI Genitourinary: See HPI Musculoskeletal: See HPI Skin: See HPI Neurological: Confusion Physical Exam Vital Signs: Temperature 98.4 F Pulse Rate 82 Respiratory Rate 20 Blood Pressure [Right Arm] 148/68 Blood Pressure 142/65 O2 Sat by Pulse Oximetry 98 Oriented: Not Oriented Eyes: Normal Ear: Normal Nose: Normal Throat: Normal Respiratory: Clear Throughout Cardiovascular: Normal : Normal Auscultation: Bowel Sounds: Normal Palpation: Normal Tenderness: Normal Skin: Decreased [place] Musculoskeletal: Normal Mood Description: Labile Affect: Quiet Speech Pattern: Unclear Assessment/Plan (1) Altered mental status: Status: Acute Plan: Monitor for improvement with decreasing sodium levels. (2) Rhabdomyolysis: Status: Acute Plan: IV hydration, repeat CK level in the morning (3) Acute dehydration: Status: Acute Plan: IV hydration (4) Hypernatremia: Status: Acute Plan: D5W IV fluid. (5) Hypokalemia: Status: Acute Plan: Potassium replacement protocol
[2022-05-07] MEDS: D5 1/2 NS 1,000 ML 1,000 ML IV SCH ×2 (00:29→03:39)
[2022-05-07 05:30] LABS: BASOPHILS # (AUTO) 0.1 X10^3/uL (0.0-0.1); BASOPHILS % (AUTO) 0.7 % (0.2-1.0); EOSINOPHILS # (AUTO) 0.1 x10^3/uL (0.0-0.2); EOSINOPHILS % (AUTO) 1.3 % (0.9-2.9); HEMATOCRIT 35.7 % (36.0-47.0); LYMPHOCYTES % (AUTO) 25.9 % (21.0-51.0); MEAN CORPUSCULAR HEMOGLOBIN 29.2 pg (27.0-34.0); MEAN CORPUSCULAR VOLUME 85.7 fL (80.0-100.0); MEAN PLATELET VOLUME 8.6 fL (7.4-11.0); MONOCYTES # (AUTO) 0.6 x10^3/uL (0.3-0.8); MONOCYTES % (AUTO) 7.9 % (0.0-13.0); NEUTROPHILS % (AUTO) 64.2 % (42.0-75.0); RED BLOOD COUNT 4.17 X10^6/uL (3.5-5.4); RED CELL DISTRIBUTION WIDTH 15.5 % (11.6-16.5); WHITE BLOOD COUNT 7.8 X10^3/uL (3.6-10.0)
[2022-05-07 05:46] LABS: ALANINE AMINOTRANSFERASE 18 Units/L (12-78); ALBUMIN 2.6 g/dL (3.4-5.0); ALKALINE PHOSPHATASE 85 Units/L (46-116); ASPARTATE AMINO TRANSFERASE 39 Units/L (15-37); BLOOD UREA NITROGEN 20 mg/dL (7-18); CALCIUM 7.3 mg/dL (8.5-10.1); CARBON DIOXIDE 30.7 mmol/L (21-32); COR CA(FOR HYPOALB) 8.4 mg/dL (8.5-10.1); COR NA(FOR HYPERGLY) 155 mmol/L (136-145); CREATINE KINASE 797 Units/L (26-192); CREATININE 0.95 mg/dL (0.55-1.02); TOTAL PROTEIN 5.8 g/dL (6.4-8.2); eGFR NON BLACK RACES > 60 (>60)
[2022-05-07 05:50] LABS: CHLORIDE 117 mmol/L (98-107); SODIUM 154 mmol/L (136-145)
[2022-05-07 05:52] LABS: HEMOGLOBIN 12.2 g/dL (12.0-16.0)
[2022-05-07] MEDS: ROCEPHIN VIAL 1 GRAM 1 G in NS 100 ML IV 100 ML IV SCH ×2 (09:00→09:45)
[2022-05-07] MEDS: D5W 1,000 ML IV 1,000 ML IV SCH ×2 (09:44→18:20)
[2022-05-07] MEDS ORDERED: POTASSIUM CHL 40 MEQ/NS 0.45% 500 ML IV PRN (10:21)
[2022-05-07] MEDS ORDERED: MAGNESIUM SULFATE 1 GRAM/100 mL PREMIX 1 G/100 ML BAG IV PRN (10:21)
[2022-05-07] MEDS ORDERED: POTASSIUM CHLORIDE LIQ 20 MEQ UDC PO PRN (10:21)
[2022-05-07] MEDS ORDERED: MICRO K EXTEN CAP 10 MEQ PO PRN (10:21)
[2022-05-07] MEDS ORDERED: KLOR-CON PO PRN (10:21)
[2022-05-07] MEDS ORDERED: K-DUR TAB 20 MEQ PO PRN (10:21)
[2022-05-07] MEDS ORDERED: POTASSIUM CHL 60 MEQ/NS 0.45% 500 ML IV PRN (10:21)
[2022-05-07] MEDS ORDERED: CARDIZEM CD 180 MG 24-HR PO SCH (11:00)
[2022-05-07] MEDS ORDERED: DIFLUCAN 200 MG IV PREMIX* 200 MG/100 ML BAG IV SCH (11:00)
[2022-05-07] MEDS ORDERED: PLAVIX PO SCH (11:00)
[2022-05-07] MEDS: K-RIDER 10 MEQ/NS 100 ML 10 MEQ/100 ML BAG IV PRN ×2 (15:07→16:40)
[2022-05-08 05:10] LABS: BASOPHILS % (AUTO) 0.5 % (0.2-1.0); EOSINOPHILS # (AUTO) 0.2 x10^3/uL (0.0-0.2); HEMATOCRIT 31.9 % (36.0-47.0); HEMOGLOBIN 11.1 g/dL (12.0-16.0); LYMPHOCYTES # (AUTO) 1.9 X10^3/uL (1.3-2.9); LYMPHOCYTES % (AUTO) 25.3 % (21.0-51.0); MEAN CORPUSCULAR HEMOGLOBIN 29.3 pg (27.0-34.0); MEAN CORPUSCULAR HGB CONC 34.7 g/dL (33.0-35.0); MEAN CORPUSCULAR VOLUME 84.3 fL (80.0-100.0); MEAN PLATELET VOLUME 8.1 fL (7.4-11.0); MONOCYTES # (AUTO) 0.5 x10^3/uL (0.3-0.8); MONOCYTES % (AUTO) 7.1 % (0.0-13.0); NEUTROPHILS # (AUTO) 4.9 x10^3/uL (2.2-4.8); NEUTROPHILS % (AUTO) 65.1 % (42.0-75.0); RED BLOOD COUNT 3.78 X10^6/uL (3.5-5.4); WHITE BLOOD COUNT 7.5 X10^3/uL (3.6-10.0)
[2022-05-08 05:16] LABS: ALANINE AMINOTRANSFERASE 15 Units/L (12-78); ALBUMIN 2.4 g/dL (3.4-5.0); ALKALINE PHOSPHATASE 79 Units/L (46-116); ASPARTATE AMINO TRANSFERASE 24 Units/L (15-37); BLOOD UREA NITROGEN 13 mg/dL (7-18); CALCIUM 7.3 mg/dL (8.5-10.1); CARBON DIOXIDE 29.9 mmol/L (21-32); CHLORIDE 109 mmol/L (98-107); COR CA(FOR HYPOALB) 8.6 mg/dL (8.5-10.1); COR NA(FOR HYPERGLY) 145 mmol/L (136-145); CREATININE 0.77 mg/dL (0.55-1.02); SODIUM 145 mmol/L (136-145); TOTAL PROTEIN 5.5 g/dL (6.4-8.2); eGFR NON BLACK RACES > 60 (>60)
[2022-05-08] MEDS: K-RIDER 10 MEQ/NS 100 ML 10 MEQ/100 ML BAG IV PRN ×2 (06:15→08:22)
--- NOTE | 2022-05-08 08:18 | PCM.PROG ---
Progress Note Progress Note for Day of Date of Exam: 05/08/22 Subjective Subjective: The patient is more alert this morning since admission. It is noted her sodium has come down to 155 from 157 on admission. She is slightly better rehydrated this morning as well potassium remains low at 3.4 we will continue to hold her p.o. medicines at this time until she is more cognitive and able to take them on her own. I will change her IV fluid to D5W instead of D5 one half normal saline to help get her sodium level down. Past Medical Family Social History Allergies: Allergies codeine Allergy (Verified 05/06/22 13:03) Sulfa (Sulfonamide Antibiotics) [SULFA] Allergy (Verified 05/06/22 13:03) Vital Signs and I&O's Vital Signs: Temperature 98.1 F Pulse Rate 64 Respiratory Rate 19 Blood Pressure [Right Arm] 148/68 Blood Pressure 171/77 O2 Sat by Pulse Oximetry 95 Intake and Output: Intake & Output 05/05/22 05/06/22 05/07/22 05/08/22 11:59 11:59 11:59 11:59 Intake Total 1432 / 1432 1646 / 1646 Output Total 375 / 375 600 / 600 Balance 1057 / 1057 1046 / 1046 Physical Exam Oriented: Not Oriented Eyes: Normal Ear: Normal Nose: Normal Throat: Normal Respiratory: Normal Cardiovascular: Normal : Normal Auscultation: Bowel Sounds: Normal Tenderness: Normal Skin: Decreased [place] Musculoskeletal: Normal Psychiatric: Normal Mood Description: Labile Affect: Quiet Speech Pattern: Appropriate and Delayed Laboratory and Diagnostics Result Diagrams: 05/08/22 04:28 05/08/22 04:28 Labs: Laboratory WBC 7.5 X10^3/uL (3.6-10.0) 05/08/22 04:28 RBC 3.78 X10^6/uL (3.5-5.4) 05/08/22 04:28 Hgb 11.1 g/dL (12.0-16.0) L 05/08/22 04:28 Hct 31.9 % (36.0-47.0) L 05/08/22 04:28 MCV 84.3 fL (80.0-100.0) 05/08/22 04:28 MCH 29.3 pg (27.0-34.0) 05/08/22 04:28 MCHC 34.7 g/dL (33.0-35.0) 05/08/22 04:28 RDW 15.0 % (11.6-16.5) 05/08/22 04:28 Plt Count 184 X10^3/uL (150.0-450.0) 05/08/22 04:28 MPV 8.1 fL (7.4-11.0) 05/08/22 04:28 Neut % (Auto) 65.1 % (42.0-75.0) 05/08/22 04:28 Lymph % (Auto) 25.3 % (21.0-51.0) 05/08/22 04:28 [place] % (Auto) 7.1 % (0.0-13.0) 05/08/22 04:28 Eos % (Auto) 2.0 % (0.9-2.9) 05/08/22 04:28 Baso % (Auto) 0.5 % (0.2-1.0) 05/08/22 04:28 Neut # (Auto) 4.9 x10^3/uL (2.2-4.8) H 05/08/22 04:28 Lymph # (Auto) 1.9 X10^3/uL (1.3-2.9) 05/08/22 04:28 [place] # (Auto) 0.5 x10^3/uL (0.3-0.8) 05/08/22 04:28 Eos # (Auto) 0.2 x10^3/uL (0.0-0.2) 05/08/22 04:28 Baso # (Auto) 0.0 X10^3/uL (0.0-0.1) 05/08/22 04:28 Absolute Nucleated RBC 0.1 /100WBC 05/08/22 04:28 Sodium 145 mmol/L (136-145) 05/08/22 04:28 Corrected Sodium 145 mmol/L (136-145) 05/08/22 04:28 Potassium 3.1 mmol/L (3.5-5.1) L 05/08/22 04:28 Chloride 109 mmol/L (98-107) H 05/08/22 04:28 Carbon Dioxide 29.9 mmol/L (21-32) 05/08/22 04:28 BUN 13 mg/dL (7-18) 05/08/22 04:28 Creatinine 0.77 mg/dL (0.55-1.02) 05/08/22 04:28 Est GFR (MDRD) Af Amer > 60 (>60) 05/08/22 04:28 Est GFR (MDRD) Non-Af > 60 (>60) 05/08/22 04:28 Glucose 114 mg/dL (65-99) H 05/08/22 04:28 POC Glucose (mg/dL) 103 mg/dL (65-99) H 05/08/22 05:59 Calcium 7.3 mg/dL (8.5-10.1) L 05/08/22 04:28 Corrected Calcium 8.6 mg/dL (8.5-10.1) 05/08/22 04:28 Magnesium 2.2 mg/dL (1.7-2.9) 05/08/22 04:28 Total Bilirubin 0.50 mg/dL (0.2-1.0) 05/08/22 04:28 AST 24 Units/L (15-37) 05/08/22 04:28 ALT 15 Units/L (12-78) 05/08/22 04:28 Alkaline Phosphatase 79 Units/L (46-116) 05/08/22 04:28 Creatine Kinase 797 Units/L (26-192) H 05/07/22 04:35 Troponin I High Sens 18.2 ng/L (4.0-60.0) 05/06/22 13:12 Total Protein 5.5 g/dL (6.4-8.2) L 05/08/22 04:28 Albumin 2.4 g/dL (3.4-5.0) L 05/08/22 04:28 Globulin 3.1 g/dL (2.5-4.5) 05/08/22 04:28 Albumin/Globulin Ratio 0.8 Ratio (1.1-2.1) L 05/08/22 04:28 Lipase 82 Units/L (73-393) 05/06/22 13:12 Specimen Type Catherized urine 05/06/22 13:30 Urine Color Yellow (YELLOW) 05/06/22 13:30 Urine Appearance Cloudy (CLEAR) 05/06/22 13:30 Urine pH 5.0 (5.0 - 8.0) 05/06/22 13:30 Ur Specific [place] 1.030 (1.000-1.030) 05/06/22 13:30 Urine Protein 2+ (NEGATIVE) 05/06/22 13:30 Urine Glucose (UA) Negative (NEGATIVE) 05/06/22 13:30 Urine Ketones Negative (NEGATIVE) 05/06/22 13:30 Urine Blood 3+ (NEGATIVE) 05/06/22 13:30 Urine Nitrite Negative (NEGATIVE) 05/06/22 13:30 Urine Bilirubin Negative (NEGATIVE) 05/06/22 13:30 Urine Urobilinogen Normal (NORMAL) 05/06/22 13:30 Ur Leukocyte Esterase 2+ (NEGATIVE) 05/06/22 13:30 Urine RBC 5-10 /HPF (0-3) A 05/06/22 13:30 Urine WBC 5-10 /HPF (0-5) A 05/06/22 13:30 Ur Squamous Epith Cells Few /HPF (NEGATIVE) 05/06/22 13:30 Urine Bacteria Trace /HPF (NEGATIVE) 05/06/22 13:30 Granular Casts Moderate /LPF (NEGATIVE) 05/06/22 13:30 Urine Mucus Moderate /HPF (NEGATIVE) 05/06/22 13:30 Urine Yeast Many /HPF (NEGATIVE) 05/06/22 13:30 Ur Culture Indicated? No/not indicated 05/06/22 13:30 SARS-CoV-2 (PCR) Negative (NEGATIVE) 05/06/22 13:35 Influenza Type A (PCR) Negative (NEGATIVE) 05/06/22 13:35 Influenza Type B (PCR) Negative (NEGATIVE) 05/06/22 13:35 RSV (PCR) Negative (NEGATIVE) 05/06/22 13:35 Plan (1) Altered mental status: Status: Acute Plan: Monitor for improvement with decreasing sodium levels. (2) Rhabdomyolysis: Status: Acute Narrative Support Text: Her rhabdomyolysis has improved with IV hydration. Repeat check CK level in the morning. Plan: IV hydration, repeat CK level in the morning (3) Acute dehydration: Status: Acute Plan: IV hydration (4) Hypernatremia: Status: Acute Plan: D5W IV fluid. (5) Hypokalemia: Status: Acute Plan: Potassium replacement protocol
[2022-05-08 09:59] VITALS: BP 166/76
== END 2022-05-08 10:42 | disposition home health service (06) | DRG 641 ==
LOC: ER 12:58 → ICU 15:31
PROVIDERS: ADMIT Family Medicine; ATTEND Family Medicine
DX: E87.0 Hyperosmolality and hypernatremia; E86.0 Dehydration; R94.31 Abnormal electrocardiogram [ECG] [EKG]; Z20.822 Contact with and (suspected) exposure to COVID-19; N39.0 Urinary tract infection, site not specified; M62.82 Rhabdomyolysis; R41.82 Altered mental status, unspecified; E78.2 Mixed hyperlipidemia; I10 Essential (primary) hypertension; K21.9 Gastro-esophageal reflux disease without esophagitis; R53.1 Weakness; E87.6 Hypokalemia